=== PATIENT | female | born 1995 | race American Indian/Alaskan Native ===

== ENCOUNTER 2016-11-07 23:39 | Outpatient (CLI) | payer SELFPAY ==
[2016-11-08 00:19] VITALS: BP 133/75
[2016-11-08] MEDS ORDERED: LACTATED RINGERS 1,000 ML IV ONE (00:32)
[2016-11-08] MEDS ORDERED: LACTATED RINGERS 500 ML IV ONE (00:33)
[2016-11-08 00:56] LABS: Urine Drugs of Abuse Note Disclamer
[2016-11-08 01:07] LABS: Bilirubin,Urine NEG (Negative); Blood,Urine NEG (Negative); Ketones,Urine NEG (Negative); Leukocyte Esterase,Urine MOD (Negative); Mucus,Urine FEW /HPF; Nitrite,Urine NEG (Negative); Protein,Urine <15 mg/dL mg/dL (Negative); Urobilinogen,Urine < 2.0 mg/dL (<2.0)
[2016-11-08 04:58] LABS: Basophils % (Auto) 0.3 % (0.0-1.8); Eosinophils % (Auto) 0.2 % (0.0-4.3); Hematocrit 30.3 % (30.3-42.9); Mean Corpuscular HGB Conc 33 % (30-34); Mean Corpuscular Volume 78 fl (79-97); Platelet Count 284 K/mm3 (140-440); Red Blood Count 3.88 M/mm3 (3.65-5.03); Red Cell Distribution Width 13.7 % (13.2-15.2); White Blood Count 10.3 K/mm3 (4.5-11.0)
[2016-11-08 05:00] LABS: Mean Corpuscular Hemoglobin 26 pg (28-32)
[2016-11-08 05:35] LABS: HIV-1 Antigen p24 Non React (Non React); HIVR-1/2 Ab Non React (Non React)
--- NOTE | 2016-11-08 10:05 | Ultrasound Report ---
OB sonogram: Twin gestation. Baby A: Findings: Position: Cephalic Amniotic Fluid: Largest vertical pocket 4.2 cm 2-8 cm Placenta: Fundal Placental Grade: 0 Heart Rate: 154 BPM BPD: 8.4 cm = 33 w 4 d HC: 31.6 cm = 35 w 3 d AC: 30.2 cm = 34 w 0 d FL: 6.8 cm = 35 w 0 d HC/AC Ratio: 1.05 Estimated Weight: 2417 grams US Gest. Age = 34 w 3 d EDC: 12/17/16 Baby B: Position: Transverse and left Amniotic Fluid: Largest vertical pocket 3.5 cm. Placenta: Anterior Placental Grade: 0 Heart Rate: 158 BPM BPD: 8.1 cm = 32 w 2 d HC: 29.5 cm = 32 w 3 d AC: 27.1 cm = 31 w one d FL: 6 cm = 31 w 0 d HC/AC Ratio: 1.09 Estimated weight 1752 g. US Gest. Age = 31 w 5 d EDC: 01/05/17
== END 2016-11-08 06:05 | disposition home or self-care (01) ==
LOC: TRG 23:39
PROVIDERS: ATTEND Obstetrics & Gynecology
DX: O32.2XX2 Maternal care for transverse and oblique lie, fetus 2 (principal); O30.003 Twin pregnancy, unspecified number of placenta and unspecified number of amniotic sacs, third trimester; O47.03 False labor before 37 completed weeks of gestation, third trimester; Z3A.34 34 weeks gestation of pregnancy; Z87.891 Personal history of nicotine dependence
CPT/HCPCS: 36415; 59025; 76816; 80307; 81001; 82731; 85025; 85660; 86592; 86706; 86762; 86803; 86850; 86900; 86901; 87806; 96360; 96361; J7120

== ENCOUNTER 2016-11-25 15:42 | Inpatient (IN) | payer OTHER ==
[2016-11-25] MEDS ORDERED: BICITRA PO SCH (16:54)
[2016-11-25] MEDS ORDERED: EMLA TP PRN (16:54)
[2016-11-25] MEDS ORDERED: PEPCID IV SCH (16:54)
[2016-11-25] MEDS: LACTATED RINGERS 1,000 ML IV SCH ×2 (17:00→17:39)
[2016-11-25] MEDS ORDERED: LACTATED RINGERS 500 ML IV ONE (17:00)
[2016-11-25] MEDS ORDERED: ANCEF/STERILE WATER 2 GM/20 ML 2 GM/20 ML SYRINGE IV NR (17:00)
--- NOTE | 2016-11-25 17:02 | History and Physical Report ---
History of Present Illness Date of examination: 11/25/16 Chief complaint: Ruptured membranes at 36 and 6 weeks History of present illness: 21-year-old at 36+6 weeks (via 3rd tri sono) with Di Di twins presents with ruptured membranes, she has had no care this . Patient with twin gestation with no care, she had an ultrasound on 11/08/2016 here at [facility] with TRUDY of 12/17/2016. 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 denies: alcohol abuse, prescription drug abuse, IV drug use - Obstetrical History Expected Date of Delivery: 12/17/16 Actual Gestation: 36 Week(s) 6 Day(s) : 3 Para: 1 Medications and Allergies Allergies Allergy/AdvReac Type Severity Reaction Status Date / Time No Known Allergies Allergy Verified 05/29/13 15:34 Home Medications Medication Instructions Recorded Confirmed Last Taken Type Ondansetron [Zofran Odt] 4 mg PO Q6H PRN #8 tab.rapdis 02/17/14 Unknown Rx Acetaminophen [Tylenol] 500 mg PO Q6HR #20 tablet 04/13/16 Unknown Rx Nitrofurantoin [place]/M-Cryst 100 mg PO Q12HR #14 capsule 06/13/16 Unknown Rx [Macrobid CAP] Active Meds: Active Medications Citric Acid/Sodium Citrate (Bicitra) 30 ml PO ONCE ONE Stop: 11/25/16 16:55 Famotidine (Pepcid) 20 mg IV ONCE ONE Stop: 11/25/16 16:55 Lactated Ringer's (Lactated Ringers) 500 mls @ 999 mls/hr IV BOLUS ONE Stop: 11/25/16 17:30 Cefazolin Sodium (Ancef/Sterile Water 2 Gm/20 Ml) 2 gm in 20 mls @ 80 mls/hr IV PREOP NR PRN Reason: Protocol Lactated Ringer's (Lactated Ringers) 1,000 mls @ 2,250 mls/hr IV PREOP MESFIN Stop: 11/26/16 17:27 Oxytocin/Sodium Chloride (Pitocin/Ns 20 Unit/1000ml Drip) 20 units in 1,000 mls @ 0 mls/hr IV TITR MESFIN PRN Reason: As Directed Lidocaine/Prilocaine (Emla) 1 applic TP ONCE PRN PRN Reason: for hinton catheter insertion Metoclopramide HCl (Reglan) 10 mg IV ONCE ONE Stop: 11/25/16 16:55 Review of Systems Constitutional: no fever, no chills Cardiovascular: no chest pain, no orthopnea, no syncope, no shortness of breath , no dyspnea on exertion Respiratory: no shortness of breath, no dyspnea on exertion Gastrointestinal: no abdominal pain, no nausea, no vomiting Genitourinary: leakage of fluid, no vaginal bleeding, no vaginal discharge - Vital Signs Vital signs: Vital Signs Pulse Pulse Ox 85 92 11/25/16 16:33 11/25/16 16:33 Temp Pulse Resp BP Pulse Ox 98.7 F 79 18 143/85 96 11/25/16 16:36 11/25/16 16:54 11/25/16 16:36 11/25/16 16:36 11/25/16 16:54 - Physical Exam Cardiovascular: Regular rate, Normal S1, Normal S2 Lungs: Positive: Clear to auscultation, Normal air movement Abdomen: Positive: normal appearance, soft. Negative: tenderness, guarding, rigidity Genitourinary (Female): Positive: normal external genitalia Uterus: Negative: enlarged, tender Extremities: Positive: normal Results All other labs normal. Assessment and Plan A: 21-year-old 011 at 36+6 weeks with ruptured membranes -Difficult to trace but cat 1 isssues -Di Di twins -Prior C-S # 1 -No PNC -Dating via sono on 11/08/16 P: -Admit -Obtain routine labs -Proceed to the OR once available -She has been consented - Patient Problems (1) 36 to 37 weeks gestation of Current Visit: Yes Status: Acute (2) PROM (premature rupture of membranes) Current Visit: Yes Status: Acute Qualifiers: PROM onset of labor timing: P PROM gestational age: P (3) History of Current Visit: Yes Status: Acute
[2016-11-25] MEDS ORDERED: MORPHINE ONE (17:12)
[2016-11-25 17:27] LABS: Basophils % (Auto) 0.3 % (0.0-1.8); Eosinophils % (Auto) 0.6 % (0.0-4.3); Hematocrit 31.2 % (30.3-42.9); Hemoglobin 10.4 gm/dl (10.1-14.3); Mean Corpuscular HGB Conc 34 % (30-34); Mean Corpuscular Volume 76 fl (79-97); Platelet Count 286 K/mm3 (140-440); Red Blood Count 4.09 M/mm3 (3.65-5.03); Red Cell Distribution Width 14.4 % (13.2-15.2); White Blood Count 9.9 K/mm3 (4.5-11.0)
[2016-11-25 17:28] LABS: Mean Corpuscular Hemoglobin 26 pg (28-32)
[2016-11-25] MEDS ORDERED: WATER FOR IRRIG STERILE IR ONE (18:00)
[2016-11-25] MEDS ORDERED: NACL 0.9% IR ONE (18:00)
[2016-11-25] MEDS ORDERED: PITOCin/NS 20 UNIT/1000ML DRIP 20 UNITS/1,000 ML BAG IV SCH ×2 (18:00→20:00)
[2016-11-25] MEDS ORDERED: REGLAN IV ONE (18:00)
[2016-11-25] MEDS ORDERED: ANCEF/STERILE WATER 2 GM/20 ML IV ONE (18:09)
[2016-11-25] MEDS ORDERED: VERSED ONE ×2 (18:39→19:24)
[2016-11-25] MEDS ORDERED: LACTATED RINGERS 1,000 ML ONE (18:53)
[2016-11-25] MEDS ORDERED: DILAUDID ONE (19:40)
--- NOTE | 2016-11-25 19:43 | Operative Report ---
Operative Report Operative Report: DATE: 11/25/2016 PREOPERATIVE DIAGNOSIS: 21 year old at 36+6 weeks, Di Di twins, no care, spontaneous rupture of membranes POSTOP DIAGNOSIS: As above NAME OF PROCEDURE: Repeat low transverse section Adhesiolysis Scar revision SURGEON: ANIA HENDRICKSON MD EMBLEM FUSER TENDER: [] ANESTHESIA: Spinal EBL: 700 mL PATHOLOGY SPECIMEN: Placenta URINE OUTPUT: 300 mL FINDINGS: Baby A male in cephalic presentation, time of was 18:29, Apgars 8 and 9, infant weight was 5 lbs. 11 oz. or 2587 g, Baby B is Male with 0 Apgars, obvious signs of skin sloughing, normal uterus tubes and ovaries bilaterally, minimal adhesions DESCRIPTION OF PROCEDURE: She was taken to the operating room where she was prepped and draped in a sterile fashion, she was placed in the dorsal supine position. Pfannenstiel incision was performed through her prior incisional scar which was carried through to underlying rectus fascia which was on the midline. The fascial incision was extended laterally with use of Lan scissors , the anterior leaf was then grasped with Kochers forceps elevated dissected sharply and bluntly off the underlying rectus in a similar fashion inferior leaf was grasped elevated dissected sharply and bluntly off the underlying rectus. The rectus was in the midline, good visualization of bladder was noted. A bladder blade was placed in the patient's pelvic cavity; bladder flap was created. A hysterotomy incision was then performed in the lower segment with meconium stained amniotic fluid noted, hysterotomy incision was extended laterally with the use of fingers manually. Baby A in cephalic presentation was delivered in the usual manner; cord was clamped and cut was handed over to waiting nursery staff. Baby B in breech presentation was delivered in the usual manner. Cord was clamped and cut and was handed over to waiting NICU staff. The placenta was then delivered manually intact, the uterus was exteriorized cleared of all clots and debris. Hysterotomy incision was then closed in a running locked fashion with 0 Vicryl on a CTX; using the same suture was imbricate the initial layer. Interrupted figure-of- eight stitches were used to obtain hemostasis. Uterus was then returned to the patient's pelvic cavity; peritoneal edges were grasped with hemostats and Payton' s elevated copiously irrigation was used to clear the gutters of all clots and debris. Tercel hemostatic agent was then applied to the hysterotomy incision as a means to prevent future bleeding. The peritoneal layer was then closed in a running fashion with 3-0 Vicryl and the rectus was reapproximated with a single [id number] stitch. The fascia was closed in a running fashion with 0 Vicryl and tied in the opposite side. The keloid scar was then grasped with Allis forceps and elevated. Using a scalpel the keloid was excised. The subcutaneous layer was irrigated and then reapproximated with interrupted [id number] stitches. The skin was closed in a subcuticular manner with 4-0 Vicryl. She tolerated the procedure well lap and instrument counts were correct 2 she did receive 2 g of Ancef prior to incision she is transferred to PACU in stable condition thank you.
--- NOTE | 2016-11-25 19:53 | Anesthesia Consultation ---
Anesthesia Consult and Med Hx Date of service: 11/25/16 - Airway ROM Head & Neck: Adequate Mental/Hyoid Distance: Adequate Mallampati Class: Class II Intubation Access Assessment: Probably Good - Pulmonary Exam CTA: Yes - Cardiac Exam Cardiac Exam: RRR - Pre-Operative Health Status ASA Pre-Surgery Classification: ASA3 Proposed Anesthetic Plan: Spinal - Pulmonary Hx Smoking: No (quit smoking in Aug, 2016) Hx Asthma: No COPD: No Hx Pneumonia: No - Cardiovascular System Hx Hypertension: No - Central Nervous System Hx Seizures: No Hx Psychiatric Problems: No - Endocrine Hx Renal Disease: Yes (frequent UTI and kidney infections) Hx End Stage Renal Disease: No Hx Hypothyroidism: No Hx Hyperthyroidism: No - Hematic Hx Anemia: No Hx Sickle Cell Disease: Yes (sickle cell trait) - Other Systems Hx Alcohol Use: Yes (1per day) Hx Obesity: Yes
[2016-11-25] MEDS ORDERED: DILAUDID IV PRN (19:54)
[2016-11-25] MEDS ORDERED: ZOFRAN IV PRN ×2 (19:54→19:56)
[2016-11-25] MEDS ORDERED: NARCAN 0.4 MG/1 ML IV PRN ×2 (19:54→19:56)
--- NOTE | 2016-11-25 19:54 | Anesthesia Day of Surgery ---
Anesthesia Day of Surgery - Day of Surgery Patient Examined: Yes Patient H&P Reviewed: Yes Patient is NPO: Yes
[2016-11-25] MEDS ORDERED: SENOKOT PO PRN (19:56)
[2016-11-25] MEDS ORDERED: LANSINOH TP PRN (19:56)
[2016-11-25] MEDS ORDERED: TYLENOL PO PRN (19:56)
[2016-11-25] MEDS ORDERED: TORADOL IV PRN (19:56)
[2016-11-25] MEDS ORDERED: SODIUM CHLORIDE FLUSH SYRINGE 10 ML IV SCH (20:00)
--- NOTE | 2016-11-25 20:03 | Event Note ---
Date: 11/25/16 Patient's blood pressure noted to be elevated in the 140s to 150s systolic range , diastolic in the 80s to 100. She is asymptomatic for pre-E. she's currently emotional due to loss of Baby B. Plan of care at this time is for observation. If systolic blood pressure rises over 160 persistently or diastolic over 110 persistently will start mag and antihypertensives.
[2016-11-25] MEDS ORDERED: TUCKS PAD TP PRN (20:11)
[2016-11-25 20:14] LABS: Urine Drugs of Abuse Note Disclamer
[2016-11-25] MEDS ORDERED: MINERAL OIL ONE (20:21)
[2016-11-25] MEDS: D5LR 1,000 ML IV SCH (22:12)
[2016-11-25] MEDS ORDERED: MINERAL OIL TOPICAL LIGHT TP ONE (23:00)
[2016-11-26] MEDS ORDERED: BENADRYL PO ONE (04:40)
[2016-11-26] MEDS: D5LR 1,000 ML IV SCH (04:55)
[2016-11-26] MEDS ORDERED: BOOSTRIX IM ONE (06:00)
--- NOTE | 2016-11-26 07:20 | Progress Note ---
Assessment and Plan - Patient Problems (1) Status post repeat low transverse section Onset Date: 11/26/16 Current Visit: Yes Status: Resolved Plan to address problem: A: S/P Repeat C Section - POD #1 Doing well Asymptomatic anemia - stable No care P: Continue RPOC Anticipate discharge in 24-48hrs (2) Acute blood loss anemia Onset Date: 11/26/16 Current Visit: Yes Status: Resolved Subjective - Subjective Date of service: 11/26/16 Principal diagnosis: s/p C Section - POD #1 Interval history: Pt is feeling well without complaints. Tolerating a liquid diet without nausea or vomiting. Patient reports: appetite normal, voiding normally, pain well controlled, ambulating normally, no flatus [place]: doing well, bottle feeding Objective - Vital Signs Latest vital signs: Vital Signs Temp Pulse Resp BP Pulse Ox 11/26/16 04:45 98.6 F 73 20 127/73 11/25/16 23:45 97.9 F 64 20 148/74 11/25/16 21:20 97.8 F 61 18 155/82 11/25/16 20:31 57 L 15 153/86 100 11/25/16 20:20 60 14 161/83 99 11/25/16 20:05 63 20 135/93 99 11/25/16 19:50 71 12 154/86 99 11/25/16 19:36 75 12 142/93 98 11/25/16 19:30 64 10 L 138/81 97 11/25/16 19:27 97.9 F 73 13 165/104 99 11/25/16 17:25 81 99 11/25/16 17:20 79 99 11/25/16 17:15 78 98 11/25/16 17:10 77 99 11/25/16 17:05 79 97 11/25/16 17:00 85 97 11/25/16 16:59 79 97 11/25/16 16:54 79 96 11/25/16 16:53 74 96 11/25/16 16:48 80 96 11/25/16 16:43 89 96 11/25/16 16:38 80 96 11/25/16 16:36 98.7 F 81 18 143/85 11/25/16 16:35 78 143/85 11/25/16 16:33 85 92 Intake and Output 11/25/16 11/26/1617 22:59 06:59 14:59 Intake Total 3350 1485 Output Total 1650 600 Balance 1700 885 Intake: IV 3350 1125 D5lr 1,000 ml @ 125 mls/ 125 1125 hr IV DIRECT MESFIN Rx#: [id number] Lactated Ringers 1,000 ml 1000 @ 2250 mls/hr IV PREOP MESFIN Rx#:[id number] PITOCin/NS 20 UNIT/1000ML 125 DRIP 20 units In 1,000 ml @ As Directed IV TITR MESFIN Rx#:[id number] Oral 240 Intake, Free Water 120 Output: Urine 1650 600 Indwelling Catheter 600 Uretheral (Cohn) 600 Other: Total, Intake Amount 240 Total, Output Amount 200 Weight 104.326 kg Estimated Blood Loss 700 - Exam Breasts: Present: deferred Cardiovascular: Present: Regular rate Lungs: Present: Clear to auscultation Abdomen: Present: normal appearance, soft Uterus: Present: normal, firm, fundal height below umbilicus Extremities: Present: normal Incision: Present: normal, dry, intact, dressed - Labs Labs: Abnormal lab results 11/25/16 Range/Units 17:20 MCV 76 L (79-97) fl MCH 26 L (28-32) pg Laboratory Tests 11/25/16 11/25/16 11/25/16 17:20 17:20 20:13 WBC 9.9 RBC 4.09 Hgb 10.4 Hct 31.2 MCV 76 L MCH 26 L MCHC 34 RDW 14.4 Plt Count 286 Lymph % (Auto) 27.1 [place] % (Auto) 6.6 Eos % (Auto) 0.6 Baso % (Auto) 0.3 Lymph # 2.7 [place] # 0.7 Eos # 0.1 Baso # 0.0 Seg Neutrophils % 65.4 Seg Neutrophils # 6.5 Urine Opiates Screen Presumptive negative Urine Methadone Screen Presumptive negative Ur Barbiturates Screen Presumptive negative Ur Phencyclidine Scrn Presumptive negative Ur Amphetamines Screen Presumptive negative U Benzodiazepines Scrn Presumptive negative Urine Cocaine Screen Presumptive negative U Marijuana (THC) Screen Presumptive negative Drugs of Abuse Note Disclamer Blood Type A POSITIVE Antibody Screen TNR ISIS Antibody Screen Negative 11/26/16 07:41 WBC RBC Hgb 8.9 L Hct 27.0 L MCV MCH MCHC RDW Plt Count Lymph % (Auto) [place] % (Auto) Eos % (Auto) Baso % (Auto) Lymph # [place] # Eos # Baso # Seg Neutrophils % Seg Neutrophils # Urine Opiates Screen Urine Methadone Screen Ur Barbiturates Screen Ur Phencyclidine Scrn Ur Amphetamines Screen U Benzodiazepines Scrn Urine Cocaine Screen U Marijuana (THC) Screen Drugs of Abuse Note Blood Type Antibody Screen ISIS Antibody Screen
[2016-11-26 08:00] LABS: Hemoglobin 8.9 gm/dl (10.1-14.3)
[2016-11-26] MEDS: FEOSOL PO SCH (11:14)
[2016-11-26] MEDS: PRENATAL VITAMIN PO SCH (11:15)
[2016-11-26] MEDS: BENADRYL PO PRN ×2 (11:15→22:25)
[2016-11-26] MEDS: MOTRIN PO PRN ×2 (13:12→18:34)
[2016-11-26] MEDS: PERCOCET 5/325 PO PRN ×2 (13:12→18:35)
--- NOTE | 2016-11-26 14:50 | Progress Note ---
Subjective Date of service: 11/26/16 Principal diagnosis: s/p C Section - POD #1 Interval history: 1st POD after Patient is out of the bed, comfortable. Pain is well controlled with pain meds. Ambulates well. No residual neurological deficit. No anesthesia complications Objective - Constitutional Vitals: Vital Signs - 12hr 11/26/16 11/26/16 11/26/16 04:45 08:30 12:30 Temperature 98.6 F 98.1 F 98.1 F Pulse Rate 73 75 81 Respiratory 20 19 18 Rate Blood Pressure 127/73 128/70 140/83 - Labs CBC & Chem 7: 11/26/16 07:41 Labs: Abnormal lab results 11/25/16 11/26/16 Range/Units 17:20 07:41 Hgb 8.9 L (10.1-14.3) gm/dl Hct 27.0 L (30.3-42.9) % MCV 76 L (79-97) fl MCH 26 L (28-32) pg
[2016-11-26] MEDS ORDERED: M-M-R II VACCINE SUB-Q ONE (19:57)
[2016-11-27] MEDS: PERCOCET 5/325 PO PRN ×3 (01:06→20:38)
[2016-11-27] MEDS: BENADRYL PO PRN (05:06)
[2016-11-27] MEDS: MOTRIN PO PRN ×3 (05:06→18:19)
--- NOTE | 2016-11-27 11:37 | Progress Note ---
Assessment and Plan - Patient Problems (1) Status post repeat low transverse section Onset Date: 11/26/16 Current Visit: Yes Status: Resolved Plan to address problem: A: S/P Repeat C Section - POD #2 Doing well Asymptomatic anemia - stable No care P: Continue RPOC Encourage ambulation Anticipate discharge in 24-48hrs (2) Acute blood loss anemia Onset Date: 11/26/16 Current Visit: Yes Status: Resolved Subjective - Subjective Date of service: 11/27/16 Principal diagnosis: s/p C Section - POD #2 Interval history: Pt is feeling well without complaints. Tolerating a liquid diet without nausea or vomiting. No flatus yet. Patient reports: appetite normal, voiding normally, pain well controlled, ambulating normally, no flatus [place]: doing well, bottle feeding Objective - Vital Signs Latest vital signs: Vital Signs Temp Pulse Resp BP 11/27/16 08:40 98.5 F 80 20 131/81 11/27/16 00:50 97.9 F 79 20 135/75 11/26/16 16:40 98.0 F 80 18 144/83 11/26/16 12:30 98.1 F 81 18 140/83 Intake and Output 11/26/16 11/27/16 11/27/16 22:59 06:59 14:59 Intake Total 120 480 240 Balance 120 480 240 Intake: Oral 120 480 240 Other: Total, Intake Amount 120 240 240 # Voids Indwelling Catheter 1 1 - Exam Breasts: Present: deferred Cardiovascular: Present: Regular rate Lungs: Present: Clear to auscultation Abdomen: Present: normal appearance, soft Uterus: Present: normal, firm, fundal height below umbilicus Extremities: Present: normal Incision: Present: normal, dry, intact, dressed
[2016-11-27] MEDS: FEOSOL PO SCH (12:02)
[2016-11-27] MEDS: PRENATAL VITAMIN PO SCH (12:03)
[2016-11-28] MEDS: MOTRIN PO PRN ×2 (00:03→10:03)
[2016-11-28] MEDS: PERCOCET 5/325 PO PRN ×2 (05:49→13:14)
--- NOTE | 2016-11-28 07:29 | Discharge Summary ---
Providers - Providers Date of Admission: 11/25/16 17:01 Date of discharge: 11/28/16 Attending physician: ANIA HENDRICKSON Primary care physician: OLIVE GRADER Hospitalization Reason for admission: rupture of membranes, other (Di Di twin gestation) Delivery: Procedure: repeat low transverse Incision: dry, intact Other procedures: none complications: none Discharge diagnosis: other (IUP at 36+6 wks s/p repeat LTCS, Di Di twins, No PNC ), intrapartum demise baby: twins (Twin B with IUFD) Hospital course: Uncomplicated post-op course Condition at discharge: Good Disposition: DC-01 TO HOME OR SELFCARE - Discharge Diagnoses (1) Status post repeat low transverse section Status: Resolved (2) 36 to 37 weeks gestation of Status: Acute (3) PROM (premature rupture of membranes) Status: Acute Qualifiers: PROM onset of labor timing: P PROM gestational age: P (4) History of Status: Acute (5) No care in current Status: Acute Qualifiers: Trimester: T (6) Dichorionic diamniotic twin gestation Status: Acute Qualifiers: Trimester: T (7) IUFD (intrauterine ) Status: Acute Plan - Discharge Medications Prescriptions: Ibuprofen [Motrin 600 MG tab] 600 mg PO Q8H PRN #30 tablet PRN Reason: Pain Multivitamin with Iron [Multivitamins with Iron] 1 each PO DAILY #30 tablet oxyCODONE /ACETAMINOPHEN [Percocet 5/325] 1 tab PO Q6HR PRN #30 tablet PRN Reason: Pain - Provider Discharge Summary Activity: no sex for 6 weeks, no heavy lifting 4 weeks, no strenuous exercise Diet: routine Instructions: routine Additional instructions: [] Smoking cessation referral if applicable(refer to patient education folder for contact #) [] Refer to [facility] Booklet Call your doctor immediately for: * Fever > 100.5 * Heavy vaginal bleeding ( >1 pad per hour) * Severe persistent headache * Shortness of breath * Reddened, hot, painful area to leg or breast * Drainage or odor from incision. * Keep incision clean and dry at all times and follow doctor's instructions regarding bathing/showering We discussed control, she will schedule follow-up in clinic to discuss - Follow up plan Follow up: PRIMARY CARE, [Primary Care Provider] - 7 Days ANIA HENDRICKSON MD [Staff Physician] - 14 Days
[2016-11-28] MEDS: PRENATAL VITAMIN PO SCH (10:04)
[2016-11-28] MEDS: FEOSOL PO SCH (10:04)
[2016-11-28 18:05] VITALS: BP 120/72
== END 2016-11-28 18:50 | disposition home or self-care (01) | DRG 765 ==
LOC: TRG 15:42 → APU 17:01 → TRG 17:01 → OB 21:04
PROVIDERS: ADMIT Obstetrics & Gynecology Gynecology; ATTEND Obstetrics & Gynecology Gynecology
PROC: 10D00Z1 Extraction of Products of Conception, Low, Open Approach (ICD-10-PCS; principal; 2016-11-25)
DX: O30.043 Twin pregnancy, dichorionic/diamniotic, third trimester (principal); D62 Acute posthemorrhagic anemia; O42.913 Preterm premature rupture of membranes, unspecified as to length of time between rupture and onset of labor, third trimester; O90.81 Anemia of the puerperium; O34.211 Maternal care for low transverse scar from previous cesarean delivery; F17.210 Nicotine dependence, cigarettes, uncomplicated; Z3A.36 36 weeks gestation of pregnancy; Z37.3 Twins, one liveborn and one stillborn
CPT/HCPCS: 36415; 80307; 85014; 85018; 85025; 86850; 86900; 86901; 88307; 90715; C9250; J0690; J1170; J1885; J2250; J2270; J2590; J2765; J7120; J7121

== ENCOUNTER 2017-07-10 09:31 | Emergency (ER) | payer MEDICAID ==
[2017-07-10 09:54] VITALS: BP 154/99
--- NOTE | 2017-07-10 10:24 | XRay Report ---
RIGHT ANKLE, 3 views: History: right ankle pain. Findings: Mild soft tissue swelling is identified. No acute osseous abnormality or joint pathology is identified. The fifth metatarsal base is intact. Impression: Soft tissue swelling. No acute osseous injury.
[2017-07-10] MEDS ORDERED: MOTRIN PO ONE (12:03)
--- NOTE | 2017-07-10 12:04 | Emergency Department Report ---
ED Lower Extremity HPI - General Chief Complaint: Extremity Injury, Lower Stated Complaint: RIGHT ANKLE PAIN Time Seen by Provider: 07/10/17 12:00 Source: patient Mode of arrival: Ambulatory Limitations: No Limitations - History of Present Illness Initial Comments: Patient reports that she twisted her ankle last night. She is reporting pain to the right other ankle with swelling and reports that she heard a crack in when she twisted her ankle. She reports that she slipped but she did not fall. Pain to right ankle is 8 out of 10 and aching and throbbing. Worse with movement better with rest. No [id number] medication taken for pain. MD Complaint: ankle injury -: Last night Injury: Ankle: Right (ankle swelling and pain due to injury) Type of Injury: other (slipped and twisted her ankle) Place: street/outdoors Severity: severe Severity scale (0 -10): 8 Improves With: rest Worsens With: weight bearing, movement, palpation Context: walking Associated Symptoms: snap/pop sensation, swelling, able to partially bear weight. denies: numbness, tingling, unable to bear weight Treatments Prior to Arrival: cold therapy - Related Data Previous Rx's Medication Instructions Recorded Last Taken Type Ondansetron [Zofran Odt] 4 mg PO Q6H PRN #8 tab.rapdis 02/17/14 Unknown Rx Acetaminophen [Tylenol] 500 mg PO Q6HR #20 tablet 04/13/16 Unknown Rx Nitrofurantoin [place]/M-Cryst 100 mg PO Q12HR #14 capsule 06/13/16 Unknown Rx [Macrobid CAP] Multivitamin with Iron 1 each PO DAILY #30 tablet 11/25/16 Unknown Rx [Multivitamins with Iron] oxyCODONE /ACETAMINOPHEN [Percocet 1 tab PO Q6HR PRN #30 tablet 11/25/16 Unknown Rx 5/325] Ibuprofen [Motrin 600 MG tab] 600 mg PO Q8H PRN #15 tablet 07/10/17 Unknown Rx Allergies Allergy/AdvReac Type Severity Reaction Status Date / Time No Known Allergies Allergy Verified 05/29/13 15:34 ED Review of Systems ROS: Stated complaint: RIGHT ANKLE PAIN Other details as noted in HPI Comment: All other systems reviewed and negative Constitutional: no symptoms reported Respiratory: no symptoms reported Cardiovascular: denies: chest pain, palpitations, dyspnea on exertion, edema, syncope, paroxysmal nocturnal dyspnea Gastrointestinal: denies: abdominal pain, nausea, vomiting, diarrhea, constipation, hematemesis, melena, hematochezia Musculoskeletal: joint swelling, arthralgia. denies: back pain, myalgia Skin: denies: rash Neurological: abnormal gait. denies: headache, numbness, paresthesias, vertigo ED Past Medical Hx - Past Medical History Previous Medical History?: Yes Hx Hypertension: No Hx Congestive Heart Failure: No Hx Diabetes: No Hx Deep Vein Thrombosis: No Hx Renal Disease: Yes (frequent UTI and kidney infections) Hx Sickle Cell Disease: Yes (sickle cell trait) Hx Seizures: No Hx Asthma: No Hx COPD: No Hx HIV: No Additional medical history: Sickle cell trait - Surgical History Past Surgical History?: Yes Additional Surgical History: c sect x 2, x 2 - Family History Family history: no significant - Social History Smoking Status: Current Every Day Smoker Substance Use Type: Alcohol - Medications Home Medications: Home Medications Medication Instructions Recorded Confirmed Last Taken Type Ondansetron [Zofran Odt] 4 mg PO Q6H PRN #8 tab.rapdis 02/17/14 11/26/16 Unknown Rx Acetaminophen [Tylenol] 500 mg PO Q6HR #20 tablet 04/13/16 11/26/16 Unknown Rx Nitrofurantoin [place]/M-Cryst 100 mg PO Q12HR #14 capsule 06/13/16 11/26/16 Unknown Rx [Macrobid CAP] Multivitamin with Iron 1 each PO DAILY #30 tablet 11/25/16 Unknown Rx [Multivitamins with Iron] oxyCODONE /ACETAMINOPHEN [Percocet 1 tab PO Q6HR PRN #30 tablet 11/25/16 Unknown Rx 5/325] Ibuprofen [Motrin 600 MG tab] 600 mg PO Q8H PRN #15 tablet 07/10/17 Unknown Rx ED Physical Exam - General Limitations: No Limitations General appearance: alert, in no apparent distress - Head Head exam: Present: atraumatic, normocephalic, normal inspection - Eye Eye exam: Present: normal appearance, PERRL, EOMI Pupils: Present: normal accommodation - ENT ENT exam: Present: normal exam, normal orophraynx, mucous membranes moist - Neck Neck exam: Present: normal inspection, full ROM, other (no C-spine tenderness). Absent: tenderness, meningismus, lymphadenopathy, thyromegaly - Respiratory Respiratory exam: Present: normal lung sounds bilaterally. Absent: respiratory distress, chest wall tenderness - Cardiovascular Cardiovascular Exam: Present: regular rate, normal rhythm, normal heart sounds. Absent: systolic murmur, diastolic murmur - GI/Abdominal GI/Abdominal exam: Present: soft, normal bowel sounds. Absent: distended, tenderness, guarding, rebound, rigid, organomegaly, mass, bruit, pulsatile mass , hernia - Extremities Exam Extremities exam: Present: normal inspection, full ROM, tenderness (right ankle tenderness with swelling.), normal capillary refill, joint swelling (right ankle tenderness with swelling), other (no clubbing, cyanosis. +2 pulses all extremities. No neurovascular compromise.). Absent: pedal edema, calf tenderness - Expanded Lower Extremity Exam Right Hip exam: Present: normal inspection, full ROM, pelvic stability. Absent: tenderness, swelling, abrasion, laceration, ecchymosis, deformity, crepidus, dislocation, erythema, external rotation, internal rotation, shortening Upper Leg exam: Present: normal inspection, full ROM. Absent: tenderness, swelling, abrasion, laceration, ecchymosis, deformity, crepidus, dislocation, erythema Knee exam: Present: normal inspection, full ROM, full knee extension. Absent: tenderness, swelling, abrasion, laceration, ecchymosis, deformity, crepidus, dislocation, erythema, effusion, pain w/ pronation/supination, posterior draw sign, pain/laxity with valgus, pain/laxity with varus Ankle exam: Present: tenderness, swelling. Absent: normal inspection, full ROM (omitted range of motion to right ankle), abrasion, laceration, ecchymosis, deformity, crepidus, dislocation, erythema Foot/Toe exam: Present: normal inspection, full ROM. Absent: tenderness, swelling, abrasion, laceration, ecchymosis, deformity, crepidus, dislocation, erythema, amputation, puncture wound, foreign body, calcaneal tenderness, tenderness at base of 5th metatarsal, nail avulsion, subungual hematoma Neuro vascular tendon exam: Present: no vascular compromise, significant pain with passive ROM of distal joint. Absent: pulse deficit, abnormal cap refill, motor deficit, sensory deficit, tendon deficit, extremity cold to touch, pallor , abnormal 2-point discrimination, decreased fine/light touch, foot drop, peroneal nerve deficit Gait: Positive: antalgic - Back Exam Back exam: Present: normal inspection, full ROM. Absent: tenderness, CVA tenderness (R), CVA tenderness (L), muscle spasm, paraspinal tenderness, vertebral tenderness, rash noted - Neurological Exam Neurological exam: Present: alert, oriented X3, normal gait, reflexes normal. Absent: motor sensory deficit - Psychiatric Psychiatric exam: Present: normal affect, normal mood - Skin Skin exam: Present: warm, dry, intact, normal color. Absent: rash ED Course Vital Signs 07/10/17 09:51 Temperature 98.3 F Pulse Rate 97 H Respiratory 16 Rate Blood Pressure 154/99 O2 Sat by Pulse 100 Oximetry - Reevaluation(s) Reevaluation #1: 07/10/17 12:17 Patient given Motrin 800 mg po x 1. - Orthopedic Splinting/Casting Injury #1 Side: right Lower Extremity Injury Location: ankle Lower Extremity Immobilizer: stirrup splint Other Orthopedic Equipment: crutches Additional Comments: Patient neurovascular intact ED Lower Extremity MDM - Radiology Data Radiology results: report reviewed X-ray of right ankle revealed moderate soft tissue swelling without any bony abnormality - Medical Decision Making ED course: The right ankle injury. She is complaining of pain and swelling to her right outer ankle. X-ray of right ankle reveals soft tissue swelling without any bony injury. This was relayed to patient. She was given Motrin 800 mg in the emergency room for right ankle pain. Please refer to procedure note for details and splinted. Patient discharged home with prescriptions for Motrin, Rice therapy explained and she was instructed to follow up with orthopedic doctor in 3 days if symptoms doesn't get better or worsens. Critical care attestation.: If time is entered above; I have spent that time in minutes in the direct care of this critically ill patient, excluding procedure time. ED Disposition Clinical Impression: Right ankle sprain Qualifiers: Encounter type: initial encounter Involved ligament of ankle: unspecified ligament Qualified Code(s): S93.401A - Sprain of unspecified ligament of right ankle, initial encounter Right ankle injury Qualifiers: Encounter type: initial encounter Qualified Code(s): S99.911A - Unspecified injury of right ankle, initial encounter Disposition: DC-01 TO HOME OR SELFCARE Is pt being admited?: No Does the pt Need Aspirin: No Condition: Stable Instructions: Ankle Stirrup Splint (ED), Ankle Sprain (ED), RICE Therapy (ED), Crutch Instructions (ED) Additional Instructions: Please follow discharge instruction on crutches, splint N Rice therapy Motrin as prescribed for pain and inflammation Avoid weightbearing to right lower extremity for 72 hours Follow up orthopedic doctor in 72 hours Prescriptions: Ibuprofen [Motrin 600 MG tab] 600 mg PO Q8H PRN #15 tablet PRN Reason: Pain Referrals: MARGE ROE MD [Staff Physician] - 07/13/17 Forms: Work/School Release Form(ED)
== END 2017-07-10 12:32 | disposition home or self-care (01) ==
LOC: ED 09:31
DX: S93.401A Sprain of unspecified ligament of right ankle, initial encounter (principal); F17.200 Nicotine dependence, unspecified, uncomplicated; X58.XXXA Exposure to other specified factors, initial encounter; Y93.89 Activity, other specified; Y92.89 Other specified places as the place of occurrence of the external cause; Y99.8 Other external cause status
CPT/HCPCS: 99284

== ENCOUNTER 2017-10-07 13:32 | Emergency (ER) | payer MEDICAID ==
[2017-10-07 16:17] VITALS: BP 144/85
--- NOTE | 2017-10-07 16:37 | Emergency Department Report ---
ED Medical Clearance HPI - General Chief complaint: Medical Clearance Stated complaint: HTN Time Seen by Provider: 10/07/17 16:06 Source: patient Mode of arrival: Ambulatory Limitations: No Limitations - History of Present Illness Initial comments: This is a 22-year-old -[place] female who presents with complaints of elevated blood pressure for the past 2 days. Patient has a history of hypertension and possibly currently taking hydrochlorothiazide 25 mg. Patient reports going to work yesterday and feeling palpitations and she went to [employer] at her job and they took her blood pressure and it was 176/125. They advised her to go directly to the emergency room she did not come yesterday decided to wait until today. Today palpitations have resolved blood pressure is slightly elevated. Patient normally follows with primary care provider is primary medical clinic. Denies palpitations, chest pain, shortness of breath, dizziness, and nausea or vomiting. MD Complaint: medical clearance request -: This morning Reason for Medical Clearance: medical condition Place: home Alledged Intoxication: No Compliant with Home Medications: No Traumatic Symptoms: denies traumatic injury Associated Symptoms: denies: chest pain, shortness of breath, palpitations, diaphoresis, denies other symptoms, confusion, cough, fever/chills, headaches, anorexia, malaise, nausea/vomiting, rash, seizure, syncope, weakness Treatments Prior to Arrival: medication Home medications: Previous Rx's Medication Instructions Recorded Last Taken Type Ondansetron [Zofran Odt] 4 mg PO Q6H PRN #8 tab.rapdis 02/17/14 Unknown Rx Acetaminophen [Tylenol] 500 mg PO Q6HR #20 tablet 04/13/16 Unknown Rx Nitrofurantoin [place]/M-Cryst 100 mg PO Q12HR #14 capsule 06/13/16 Unknown Rx [Macrobid CAP] Multivitamin with Iron 1 each PO DAILY #30 tablet 11/25/16 Unknown Rx [Multivitamins with Iron] oxyCODONE /ACETAMINOPHEN [Percocet 1 tab PO Q6HR PRN #30 tablet 11/25/16 Unknown Rx 5/325] Ibuprofen [Motrin 600 MG tab] 600 mg PO Q8H PRN #15 tablet 07/10/17 Unknown Rx Amlodipine Besylate [Norvasc] 5 mg PO DAILY #30 tablet 10/07/17 Unknown Rx Allergies/Adverse reactions: Allergies Allergy/AdvReac Type Severity Reaction Status Date / Time No Known Allergies Allergy Verified 05/29/13 15:34 ED Review of Systems ROS: Stated complaint: HTN Other details as noted in HPI Constitutional: denies: chills, fever Respiratory: denies: cough, shortness of breath, wheezing Cardiovascular: denies: chest pain, palpitations Gastrointestinal: denies: abdominal pain, nausea, diarrhea Neurological: denies: headache, weakness, paresthesias Psychiatric: denies: anxiety, depression ED Past Medical Hx - Past Medical History Hx Hypertension: No Hx Congestive Heart Failure: No Hx Diabetes: No Hx Deep Vein Thrombosis: No Hx Renal Disease: Yes (frequent UTI and kidney infections) Hx Sickle Cell Disease: Yes (sickle cell trait) Hx Seizures: No Hx Asthma: No Hx COPD: No Hx HIV: No Additional medical history: Sickle cell trait - Surgical History Additional Surgical History: c sect x 2, x 2 - Social History Smoking Status: Current Every Day Smoker Substance Use Type: None - Medications Home Medications: Home Medications Medication Instructions Recorded Confirmed Last Taken Type Ondansetron [Zofran Odt] 4 mg PO Q6H PRN #8 tab.rapdis 02/17/14 11/26/16 Unknown Rx Acetaminophen [Tylenol] 500 mg PO Q6HR #20 tablet 04/13/16 11/26/16 Unknown Rx Nitrofurantoin [place]/M-Cryst 100 mg PO Q12HR #14 capsule 06/13/16 11/26/16 Unknown Rx [Macrobid CAP] Multivitamin with Iron 1 each PO DAILY #30 tablet 11/25/16 Unknown Rx [Multivitamins with Iron] oxyCODONE /ACETAMINOPHEN [Percocet 1 tab PO Q6HR PRN #30 tablet 11/25/16 Unknown Rx 5/325] Ibuprofen [Motrin 600 MG tab] 600 mg PO Q8H PRN #15 tablet 07/10/17 Unknown Rx Amlodipine Besylate [Norvasc] 5 mg PO DAILY #30 tablet 10/07/17 Unknown Rx ED Physical Exam - General Limitations: No Limitations General appearance: alert, in no apparent distress, obese - Respiratory Respiratory exam: Present: normal lung sounds bilaterally. Absent: respiratory distress - Cardiovascular Cardiovascular Exam: Present: regular rate, normal rhythm, normal heart sounds. Absent: systolic murmur, diastolic murmur, rubs, gallop - GI/Abdominal GI/Abdominal exam: Present: soft, normal bowel sounds. Absent: organomegaly, mass - Neurological Exam Neurological exam: Present: alert, oriented X3, normal gait - Psychiatric Psychiatric exam: Present: normal affect, normal mood - Skin Skin exam: Present: warm, dry, intact, normal color. Absent: rash ED Course Vital Signs 10/07/17 10/07/17 14:04 16:17 Temperature 98.0 F Pulse Rate 83 Blood Pressure 147/99 Blood Pressure 144/85 [Right] O2 Sat by Pulse 99 Oximetry ED Medical Decision Making - Medical Decision Making This is a 22 y.o. female that presents with elevated blood pressure. History of HTN. Currently taking HCTZ 25 mg po daily. Patient is stable and was examined by me. Reviewed options for blood pressure control. Vital stable. Continue hydrochlorothiazide 25 mg by mouth daily and start amlodipine 5 mg by mouth daily. Follow up with PCP in 1 week. Discussed plan with patient and agreed to plan. No further questions noted by the patient. Discharged home in stable condition. Follow up with PCP in 1 week. ED Disposition Clinical Impression: Uncontrolled hypertension Hypertension Qualifiers: Hypertension type: essential hypertension Qualified Code(s): I10 - Essential ( primary) hypertension Disposition: DC-01 TO HOME OR SELFCARE Is pt being admited?: No Does the pt Need Aspirin: No Condition: Stable Instructions: Hypertension (ED) Additional Instructions: Encourage stop smoking to reduce cardiovascular risk. Moderate caffeine consumption is acceptable. Begin and maintain aerobic exercise, with a goal of at least 30 minutes of moderate intensity, dynamic aerobic exercise (walking, jogging, cycling, or swimming) 5 days per week to total 150 minutes as tolerated or recommended by a physician. Take medication daily as prescribed. Follow up with Primary Care Provider in 1 week. Prescriptions: Amlodipine Besylate [Norvasc] 5 mg PO DAILY #30 tablet Referrals: [facility] [Provider Group] - 3-5 Days [facility] [Outside] - 3-5 Days Forms: Work/School Release Form(ED) Time of Disposition: 16:45 Print Language: [place]
== END 2017-10-07 16:51 | disposition home or self-care (01) ==
LOC: ED 13:32
DX: I10 Essential (primary) hypertension (principal); F17.200 Nicotine dependence, unspecified, uncomplicated
CPT/HCPCS: 99282